=== PATIENT | female | born 1965 | race Caucasian/White ===

== ENCOUNTER 2024-04-26 16:31 | Inpatient (IN) | payer BC, OTHER ==
[~2024-04-26] VITALS: Ht 165.2 cm; Wt 112.5 kg
[2024-05-16] MEDS ORDERED: Pregabalin 150 MG CAP PREOP X1 PO SCH (06:00)
[2024-05-16] MEDS ORDERED: oxyCODONE ER (12-HR) 20 MG TAB PREOP X1 PO SCH (06:00)
[2024-05-16] MEDS ORDERED: Scopolamine 1 MG Delivered 3-Day PATCH TD SCH (09:15)
[2024-05-16] MEDS ORDERED: Famotidine 20 MG TAB PO SCH (09:15)
[2024-05-17] VITALS (13 sets, daily range): BP systolic 98–182; BP diastolic 58–96; PULSE 68–102; TEMP 97–98.6
[2024-05-17] MEDS ORDERED: ARMOUR THYROID90 MG PO (06:07)
[2024-05-17] MEDS ORDERED: COZAAR 25MG25 MG/TAB PO (06:07)
[2024-05-17] MEDS ORDERED: ZYLOPRIM 300MG300 MG PO (06:08)
[2024-05-17] MEDS ORDERED: OMEGA-3 1000 MG1 CAP PO (06:09)
[2024-05-17] MEDS ORDERED: VITAMIN D362.5 MC1 PO (06:09)
[2024-05-17] MEDS ORDERED: Midazolam 2 MG/2 ML VIAL ONE (06:36)
[2024-05-17] MEDS ORDERED: LR 1,000 ML IV ONE (06:45)
[2024-05-17] MEDS ORDERED: Tranexamic Acid 1,000 MG/10 ML VIAL ONE (07:04)
[2024-05-17] MEDS ORDERED: HYDROmorphone 1 MG/1 ML SYRINGE [PACU/SDC ONLY] IV PRN (07:30)
[2024-05-17] MEDS ORDERED: Meperidine 50 MG/ML 1 ML VIAL IV PRN (07:30)
[2024-05-17] MEDS ORDERED: Ondansetron 4 MG/2 ML VIAL IV PRN (07:30)
[2024-05-17] MEDS ORDERED: hydrALAZINE 20 MG/ML 1 ML VIAL IV PRN (07:30)
[2024-05-17] MEDS ORDERED: fentaNYL 50 MCG/ML 1 ML SYRINGE/VIAL [PACU/SDC ONLY] IV PRN (07:30)
[2024-05-17] MEDS ORDERED: NS 10 ML IV ONE (07:39)
[2024-05-17] MEDS ORDERED: Topical Skin Adhesive 1 EACH (1 ML) TOP ONE (08:15)
[2024-05-17] MEDS ORDERED: Naloxone 0.4 MG/ML VIAL IV PRN (08:30)
[2024-05-17] MEDS ORDERED: Promethazine 25 MG TAB PO PRN (08:30)
[2024-05-17] MEDS ORDERED: traMADol 50 MG TAB PO PRN (08:30)
[2024-05-17] MEDS ORDERED: Promethazine 50 MG/ML 1 ML VIAL IM PRN (08:30)
[2024-05-17] MEDS ORDERED: oxyCODONE 5 MG TAB PO PRN (08:30)
[2024-05-17] MEDS ORDERED: Magnes Hydrox (MOM) 80 MG/ML 30 ML CUP PO PRN (08:30)
--- NOTE | 2024-05-17 09:00 | NUR ---
PT ARRIVED TO 331 FROM PACU. PT IS AWAKE AND ORIENTED. PT IS ON RA. PT'S VSS. PT ORIENTED TO ROOM AND FLOOR. CALL LIGHT GIVEN. PT INSTRUCTED TO CALL WITH ALL NEEDS. PT TOLERATING ICE. 0930-COFFEE AND WATER GIVEN. PT ABLE TO SIT UP. PT ABLE TO WIGGLE TOES ON RIGHT FOOT AND SLIGHTLY MOVE RIGHT FOOT.
[2024-05-17] MEDS ORDERED: Acetaminophen 500 MG TAB PO SCH (14:00)
[2024-05-17] MEDS ORDERED: ceFAZolin 2 G in Water For Injection,Sterile 20 ML IV SCH (15:00)
[2024-05-17] MEDS ORDERED: Sennosides/Docusate 8.6-50 MG TAB PO SCH (21:00)
[2024-05-18] VITALS (7 sets, daily range): BP systolic 145–173; BP diastolic 85–93; PULSE 82–99; TEMP 98–98.8
--- NOTE | 2024-05-18 00:09 | NUR ---
Pt has had high blood pressure readings with the most recent reading being 173/81. Pt has been given pain medications and been encouraged to rest for a time with BP has been rechecked. The HTN has presisted. I called Dr. Olsen who is the on-call othro for tonight. He advised to give the pt her regular dose of Losartan 25 mg which is her home medication. He stated that we should consult Dr. Jeter when he is rounding in the morning concerning her scheduled 0900 dose of the losartan, whether it should be administered or held. This order was verbally read back to the provider. Orders will be entered in the eMAR and carried out.
[2024-05-18] MEDS ORDERED: Losartan 25 MG TAB PO ONE (00:30)
--- NOTE | 2024-05-18 01:28 | NUR ---
Shift assessment completed- see documentation. Pt is alert and oriented. She is on room air. Pt reports 8/10 pain in her right knee. PRN tramadol administered as ordered along with her PM medications. Pt complained of nausea and PRN phenergan was administered PO as ordered. Later, pt did vomit but was able to keep medications down following the emesis. Pt is ambulating to the bathroom with the use of a walker. Ice pack is applied to the surgical sight and RLE is elevated when in bed/chair. Fall precautions in place and call light within reach.
[2024-05-18 06:22] LABS: HEMATOCRIT 37.7 % (37.0-47.0); HEMOGLOBIN 12.4 g/dl (12.5-16.0)
[2024-05-18] MEDS ORDERED: Thyroid, Desiccated 60 MG TAB PO SCH (07:00)
[2024-05-18] MEDS ORDERED: ROXICODONE 55 MG/TAB PO (07:22)
[2024-05-18] MEDS ORDERED: ULTRAM 50MG TAB50 MG PO (07:22)
[2024-05-18] MEDS ORDERED: TYLENOL 500MG500 MG PO (07:22)
[2024-05-18] MEDS ORDERED: ASPI325T6 PO (07:23)
--- NOTE | 2024-05-18 08:48 | NUR ---
Pt resting in bed with pain 5/10 in right knee. No PRn pain medication available at this time, ICE applied to right knee. Gauze and nigel wrap dressing removed and aquacell applied per orders. Steady gait to bathroom with walker. Pt tolerating deit well and working with PT. Will continue to monitor.
[2024-05-18] MEDS ORDERED: Allopurinol 300 MG TAB PO SCH (09:00)
[2024-05-18] MEDS ORDERED: Losartan 25 MG TAB PO SCH (09:00)
--- NOTE | 2024-05-18 10:17 | NUR ---
Discharge instructions provided to pt and . Discussed follow up appointment, new medications, and signs of infection. No questions at this time. IV removed, pain medication provided per EMAR. Pt escorted out of building via wheelchair.
--- NOTE | 2024-05-18 13:13 | NUR ---
Collections Clerk met with patient to discuss discharge planning. Patient lives in [place], [place] with her , Faisal (ph#[phone]) who is at bedside. Patient sees Dr. Petersen for primary care and uses the [facility] for medications. Patient has a walker for recovery and is set up in [place] for outpatient PT. Patient is normally independent with ADLS and does not require DME. Patient stated she does not have DPOA-HC and does not wish to complete one at this time. Discharge Plan: Home
== END 2024-05-18 10:17 | disposition home or self-care (01) | DRG 470 ==
LOC: INPTSU 05-17 05:32 → SURG 05-17 07:30
PROVIDERS: Physician Assistant; ADMIT Orthopaedic Surgery
PROC: 0SRC0J9 Replacement of Right Knee Joint with Synthetic Substitute, Cemented, Open Approach (ICD-10-PCS; principal; 2024-05-18)
DX: M17.11 Unilateral primary osteoarthritis, right knee (principal); M10.9 Gout, unspecified; Z96.652 Presence of left artificial knee joint; E78.5 Hyperlipidemia, unspecified; K21.9 Gastro-esophageal reflux disease without esophagitis; I12.9 Hypertensive chronic kidney disease with stage 1 through stage 4 chronic kidney disease, or unspecified chronic kidney disease; N18.30 Chronic kidney disease, stage 3 unspecified; Z88.0 Allergy status to penicillin; Z88.2 Allergy status to sulfonamides; Z88.8 Allergy status to other drugs, medicaments and biological substances; Z91.040 Latex allergy status; Z87.891 Personal history of nicotine dependence
CPT/HCPCS: A6197; A9284; C1713; C1776; J0688; J0690; J2250; J2704; J7120